=== PATIENT | female | born 1985 | race Caucasian/White ===

== ENCOUNTER 2017-04-08 13:12 | Emergency (ER) | payer SELFPAY ==
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
[2017-04-08 17:03] VITALS: BP 133/78
== END 2017-04-08 16:24 | disposition home or self-care (01) ==
LOC: EDBD 13:12 → ED 13:12
DX: S80.02XA Contusion of left knee, initial encounter (principal); R51 Headache; V43.52XA Car driver injured in collision with other type car in traffic accident, initial encounter; Y93.9 Activity, unspecified; Y92.9 Unspecified place or not applicable
CPT/HCPCS: 99281